=== PATIENT | male | born 1950 | race African-American/Black ===

== ENCOUNTER 2016-08-26 12:30 | Inpatient (IN) ==
--- NOTE | 2016-08-25 21:51 | Discharge Summary ---
<Lisa Canales Maryellen - Last Filed: 08/25/16 21:53> Date of Encounter: 08/25/16 - Discharge Diagnosis (1) Hip arthritis Priority: Primary Status: Acute (2) Dyslipidemia Priority: Secondary Status: Chronic (3) Hypertension Priority: Secondary Status: Chronic Qualifiers: Hypertension type: essential hypertension Qualified Code(s): I10 - Essential (primary) hypertension (4) Obesity Priority: Secondary Status: Chronic Qualifiers: Obesity type: unspecified obesity type Obesity severity: unspecified obesity severity Qualified Code(s): E66.9 - Obesity, unspecified - Discharge Medications Prescriptions: Doxycycline 100 mg PO BID #14 capsule Home Medications: Ascorbic Acid [Vitamin C] 1,000 mg PO DAILY 06/27/16 [History] Cyanocobalamin (Vitamin B-12) [Vitamin B-12] 100 mcg PO DAILY 06/27/16 [History] Lecithin 1,200 mg PO DAILY 06/27/16 [History] Lysine [l-Lysine] 500 mg PO DAILY 06/27/16 [History] [place]-3S/Dha/Epa/Fish Oil [Fish Oil [place]-3 Softgel] 1,000 mg PO BID 06/27/16 [ History] Pyridoxine HCl [Vitamin B-6] 250 mg PO DAILY 06/27/16 [History] Vitamin E (Dl,Tocopheryl Acet) [Vitamin E] 400 unit PO DAILY 06/27/16 [History] Vitamins A and D [Vitamin A and D] 10,000 units PO DAILY 06/27/16 [History] Aspirin Enteric Coated [Aspirin EC] 325 mg PO Q12H #21 tablet. 08/25/16 [Rx] OxyCODONE Immed Rel [Roxicodone 5 MG] 5 - 10 mg PO Q6HR PRN #40 tablet 08/25/16 [Rx] Dolomite 4 tab PO DAILY 08/26/16 [History] Zinc Acetate [Galzin] 50 mg PO DAILY 08/26/16 [History] Doxycycline 100 mg PO BID #14 capsule 08/28/16 [Rx] Allergies/Adverse Reactions: Allergies No Known Allergies Allergy (Verified 08/26/16 13:20) Primary care physician: Edilberto Duarte MD - Patient Status Disposition: Home, Self-Care Condition: Good - Discharge Instructions Follow Up With: Kash Ruiz MD [Partnered Physician] - 03/07/17 7:25 am Lisa Canales PAC [Physician Nurse Receptionist] - 09/03/16 11:15 am Edilberto Duarte MD [Primary Care Provider] - 01/28/17 9:00 am Additional Instructions: Discharge Instructions: Total Hip Replacement Please call [facility] ([phone]), your Primary Care Physician, or report to the Emergency Room if you have any of the following symptoms: Nausea, vomiting, fever greater that 101.5, swelling, chest pain, shortness of breath, increased pain/redness/drainage/odor for your incision site, numbness/ tingling, or any other concerning symptoms. ACTIVITY:Weight-bearing as tolerated for 8 weeks with hip dislocation precautions that physical therapy taught you. You may progress as tolerated under the guidance of your physical therapist. You do not need to sleep with a pillow between your legs. You can also seep on the operative side or on your stomach. MEDICATIONS: Upon discharge resume your home medications. Take all the medications as prescribed. Take a stool softener if taking narcotic pain medications. Stool softeners are only effective if you drink enough fluids. Drink 6-8 glass of water or fluids a day, unless this is not allowed for another health problem. Despite using stool softeners, if you haven't had a bowel movement in 3 days, please switch to a gentle laxative. Gentle laxatives are sold over the counter. You should have a bowel movement within 24 hours, if not call the office. You will be discharged from the hospital with a prescription for pain medication. You are encouraged to decrease the use of narcotic pain medication as tolerated. Should you require a refill, please call the office. [facility] prescribes narcotic pain medication for only 4-6 weeks after surgery. If you require pain medication beyond this time period, you may be referred to your Primary Care Physician or to the Pain Clinic for further evaluation. Plan ahead for refills on pain medication as many narcotics either need to be picked up at the office or mailed. It is best to call 48-72 hours in advance of needing a prescription refill so you don't run out of medication. To help control the post-operative pain, you may take NSAIDs (Aleve,Advil, Motrin, ibuprofen, naprosyn) or Tylenol as prescribed on the bottle in addition to the pain medication. ANTICOAGULATION (blood thinners): Continue your Aspirin, Lovenox or Coumadin as prescribed to help prevent a blood clot in the leg or in the lungs. As long as your incision remains dry and you tolerate the NSAIDs (Aleve, Advil, Motrin, ibuprofen, naprosyn), it is OK to use the NSAIDS while you are taking your anticoagulation medication. Should your incision start to drain, stop the NSAID and contact our office. Common symptoms of blood clot in the legs include: localized pain, swelling, calf tenderness, redness or discoloration of the skin. Blood clot in the lung symptoms include: shortness of breath, rapid pulse, sweating, and chest pain that worsens with deep breathing, coughing up blood, lightheadedness, feelings of anxiety. If you experience any of these symptoms notify your physician immediately, go to the emergency room, or if having trouble breathing, call 911. WOUND CARE: Leave the dressing on until the followup appointment. Keep the dressing clean and dry. If you have more than half of the dressing become saturated with drainage, please contact the office at [phone]. FOLLOW-UP: Please follow up with your surgeon in the orthopedic clinic in 6 weeks from the day of surgery. If you have bill that need to be removed, you will need to come back to the office in 10-14 days from the day of surgery. - Hospital Course Hospital course: Mr. Silverio is a 65 year old male - Time Spent with Patient Total time spent providing and/or coordinating discharge services: <Kash Ruiz - Last Filed: 08/28/16 13:30> Date of Encounter: 08/28/16 Time of Encounter: 13:28 - Discharge Diagnosis (1) Hip arthritis Priority: Primary Status: Acute (2) Obesity Priority: Secondary Status: Chronic Qualifiers: Obesity type: unspecified obesity type Obesity severity: unspecified obesity severity Qualified Code(s): E66.9 - Obesity, unspecified (3) Dyslipidemia Priority: Secondary Status: Chronic (4) Hypertension Priority: Secondary Status: Chronic Qualifiers: Hypertension type: essential hypertension Qualified Code(s): I10 - Essential (primary) hypertension (5) Obesity (BMI 35.0-39.9 without comorbidity) Priority: Secondary Status: Chronic Primary care physician: Edilberto Duarte MD - Patient Status Functional capacity at discharge: uses cane/walker Overall status at discharge: patient is progressing back to baseline - Hospital Course Hospital course: Mr. Silverio is a 65 year old male The patient had an uneventful postoperative course. They received antibiotics and physical therapy and were discharged in stable condition. There will follow -up in the office in 2 weeks. Patient with negative Doppler secondary to bilateral lower extremity swelling, irritation from the bandage placed on doxycycline 100 mg twice a day follow-up in the office 2 weeks - Time Spent with Patient Total time spent providing and/or coordinating discharge services:
[2016-08-26] MEDS ORDERED: CeFAZolin Pre 2,000 MG/100 ML 2,000 MG/100 ML BAG IVPB ONE (13:05)
--- NOTE | 2016-08-26 13:07 | History & Physical Report ---
Date of Encounter: 08/26/16 Time of Encounter: 13:06 24 Hour HP Update - Instructions Instructions: If the History and Physical is less than 30 days old and was completed prior to A.M. admission and or procedure and has NOT been updated on calendar day of procedure please complete this update prior to performing procedure. - Update Patient reports changes in Medical Condition: No Changes in assessment/condition: No Changes in Medication: No Preop tests/diagnostics Reviewed: Yes Surgery Remains Indicated: Yes Consent for Planned Operative Procedure(s) Verified: Yes - Pre-Operative Checklist Preoperative Checklist Indicated: No Prophylactic Antibiotic Ordered: Yes Is VTE Prophylaxis Indicated?: Yes
[2016-08-26] MEDS ORDERED: Ringers Solution, Lactated 1,000 ML IVC SCH ×2 (13:15→17:07)
[2016-08-26] MEDS ORDERED: *HR* Promethazine 25 MG/ML VIAL IVP PRN (13:33)
[2016-08-26] MEDS ORDERED: *HR* FentaNYL (PF) 100 MCG/2 ML VIAL ONE (13:40)
[2016-08-26] MEDS ORDERED: *HR* Propofol 200 MG/20 ML VIAL IVP ONE (13:41)
[2016-08-26] MEDS ORDERED: Lidocaine -MPF 2% 2 ML VIAL ONE (13:42)
[2016-08-26] MEDS ORDERED: Acetaminophen IV 1,000 MG/100 ML INFUS..BTL IVPB ONE (14:09)
[2016-08-26] MEDS ORDERED: Famotidine 20 MG/2 ML VIAL IVP ONE (14:09)
--- NOTE | 2016-08-26 14:12 | Anesthesia Evaluation PreOp ---
Date of Encounter: 08/26/16 Time of Encounter: 14:10 - Past History Planned Operation: Rt THR Cardiac History: Denies any Significant Hx Pulmonary History: Denies Any Significant HX BRANCH RETAIL EXECUTIVE History: Denies Any Significant HX Other Medical History: Other (OA) Anesthesia History: No Prior Anesthetic Complications Alcohol Use: none, occasionally Drug use: none Medications and Allergies Ascorbic Acid [Vitamin C] 1,000 mg PO DAILY 06/27/16 [History] Cyanocobalamin (Vitamin B-12) [Vitamin B-12] 100 mcg PO DAILY 06/27/16 [History] Lecithin 1,200 mg PO DAILY 06/27/16 [History] Lysine [l-Lysine] 500 mg PO DAILY 06/27/16 [History] [place]-3S/Dha/Epa/Fish Oil [Fish Oil [place]-3 Softgel] 1,000 mg PO BID 06/27/16 [ History] Pyridoxine HCl [Vitamin B-6] 250 mg PO DAILY 06/27/16 [History] Vitamin E (Dl,Tocopheryl Acet) [Vitamin E] 400 unit PO DAILY 06/27/16 [History] Vitamins A and D [Vitamin A and D] 10,000 units PO DAILY 06/27/16 [History] Aspirin Enteric Coated [Aspirin EC] 325 mg PO Q12H #21 tablet. 08/25/16 [Rx] OxyCODONE Immed Rel [Roxicodone 5 MG] 5 - 10 mg PO Q6HR PRN #40 tablet 08/25/16 [Rx] Dolomite 4 tab PO DAILY 08/26/16 [History] Zinc Acetate [Galzin] 50 mg PO DAILY 08/26/16 [History] Allergies No Known Allergies Allergy (Verified 08/26/16 13:20) - Meds/Allergy Pre-op Review Medications Reviewed: Yes Allergies Reviewed: Yes Beta Blockers on Current Med List: No Anesthesia Results - Labs Laboratory Tests 08/12/16 08/12/16 09:55 09:55 Hgb 12.3 L Hct 38.5 Plt Count 190 Sodium 138 Potassium 4.0 BUN 16 Creatinine 0.79 - Imaging EKG: report reviewed (ST) Anesthesia Exam O2 Sat Height 1.73 m Height 1.73 m Height 1.73 m Weight 117.027 kg Weight 117.027 kg Weight 117.027 kg O2 Sat by Pulse Oximetry 97 O2 Sat by Pulse Oximetry 97 O2 Sat by Pulse Oximetry 97 Vital Signs Temp Pulse Resp BP Pulse Ox 98.9 F 98 18 178/107 97 08/26/16 12:53 08/26/16 12:53 08/26/16 12:53 08/26/16 12:53 08/26/16 12:53 Height: 5'9 Weight: 255 lbs NPO (# of Hours): MN Pain Scale: 0 - HEENT Pupil (Motor): Pupils equal, EOMI Mallampati: II Teeth: Normal Oral Opening: Greater than 3 - BRANCH RETAIL EXECUTIVE LOC: Oriented BRANCH RETAIL EXECUTIVE Motor: Normal RUE, Normal LUE, Normal RLE, Normal LLE, Normal Face BRANCH RETAIL EXECUTIVE Sensory: Normal: RUE, LUE, RLE, LLE, Face - Cardiac Rhythm: Regular Murmur: None JVD: No Carotid Bruit: No - Pulmonary Breath Sounds: bilateral Clear Respiratory Effort: Symmetrical Anesthesia Assess/Plan ASA Score: 2 Modified Niru Scale for Level of Consciousness: Cooperative, oriented, and tranquil Anesthetic Plan: General Monitoring Plan: Standard Monitors Recovery Plan: PACU (Discussed GA, agrees to proceed)
[2016-08-26] MEDS ORDERED: Ondansetron 4 MG/2 ML VIAL ONE (14:52)
[2016-08-26] MEDS ORDERED: Dexamethasone 4 MG/ML VIAL ONE (14:52)
[2016-08-26] MEDS ORDERED: EPHEDrine 50 MG/ML VIAL ONE (15:03)
[2016-08-26] MEDS ORDERED: *HR* HYDROmorphone 2 MG/ML SYRINGE ONE (15:04)
--- NOTE | 2016-08-26 15:29 | Orthopedic Operative Note ---
Date of procedure: 08/26/16 Pre-op diagnosis: Right hip arthritis Post-op diagnosis: same Procedure: Procedure: Right Total Hip Replacment Estimated blood loss: 200 cc Hardware: Biomet DM Cup: 64 G7 fin cup Femoral size 12 echo full profile lateralized stem Head: +6 head with Hanane Procedural Notes: Significant grade 4 arthritic changes femoral head acetabular socket Operative procedure: The patient was brought to the operating room and placed on the operating room table. After general anesthesia was administered the patient was placed in the lateral decubitus position with the operative leg up. All pressure points were padded appropriately and the head was stabilized in the neutral position. The operative extremity was prepped and draped in the sterile surgical fashion patient received IV antibiotic prior to skin incision. A standard posterior approach is made to the operative hip, the incision was made through the skin and subcutaneous tissue hemostasis was obtained with Bovie cautery. Using careful sharp dissection the fascia was identified and incised exposing the external rotators. The external rotators were released off the greater trochanter and tagged with #2 FiberWire suture. The capsule was T'd open and the hip was brought into internal rotation. Patient noted to have grade 4 arthritic changes femoral head. The femoral neck cut was made at the appropriate level. An anterior capsulotomy was performed for the anterior retractor. Soft tissues removed from the acetabulum. Patient noted to have grade 4 arthritic changes acetabulum. Acetabulum was first reamed medially, and then reamed in 15 degrees of anteversion and 45 degrees off the horizontal. It was reamed up to the appropriate size 64 The appropriate-sized 64 acetabular cup was impacted in place in 15 degrees of anteversion and 45 degrees off the horizontal. This had good fit and fixation. The hip was brought back in to internal rotation and prepared with the coin box inspector followed by the canal finder followed by broaching process in 20 degrees anteversion. It was broached up to the appropriate size 12 The femoral implant was impacted in place in 20 degrees of anteversion. Trial reduction found the hip to be stable with a +6 head and Hanane. The trials were removed and the real implants were impacted in place. The hip was reduced, patient had apparent equal leg lengths. The hip had excellent stability with forward flexion to 90 degrees adduction of 30 degrees and internal rotation of 60 degrees. The hip had no shuck. The hips after 2 minutes with a Betadine saline solution. It was irrigated out with 2 L of pulse irrigation. The external rotators were reattached to drill holes in the greater trochanter. Fascia was closed with a running #2 PDS suture. The deep tissue was irrigated and closed deep with #1 PDS suture superficially with 0 PDS suture and skin was closed with Dermabond and skin bill. The patient was placed in a sterile dressing and abduction pillow. The patient was extubated and transferred to the recovery room in stable condition. Anesthesia: DALLIN Surgeon: Kash Ruiz Etl Informatica Developer: Lisa Canales Condition: stable Disposition: PACU
[2016-08-26] MEDS: *HR* HYDROmorphone (PF) 1 MG/ML SYRINGE IVP PRN ×2 (16:00→16:15)
[2016-08-26] MEDS ORDERED: *HR* HYDROmorphone (PF) 1 MG/ML SYRINGE ONE (16:02)
[2016-08-26 16:13] LABS: Hematocrit 37.7 % (37.5-50.1); Hemoglobin 12.2 g/dL (12.9-16.9)
--- NOTE | 2016-08-26 16:30 | Anesthesia Evaluation Post Op ---
Date of Encounter: 08/26/16 Time of Encounter: 16:29 - Vital Signs Vital Signs: Vital Signs/O2 Sat/Glucose, Most Recent Temp Pulse Resp BP Pulse Ox 98.0 F 89 16 161/89 98 08/26/16 15:55 08/26/16 16:15 08/26/16 16:15 08/26/16 16:15 08/26/16 16:15 - Lungs Lungs: Clear Ascult./Percussion - Airway Airway: Non-obstructed - Cardiovascular Regular Rate - Mental Status Mental Status: Alert & Oriented, Answers Appropriately - Pain Pain Scale: 0 Pain Scale used: Numeric (1 - 10) - Nausea Vomiting Nausea Vomiting: Not Present - Hydration Hydration: NPO - Discharge PostOp Status: Transfer Patient to floor
[2016-08-26] MEDS ORDERED: ceFAZolin 2,000 MG in D5% in Water 100 ML IVPB SCH (17:07)
[2016-08-26] MEDS ORDERED: Naloxone 0.4 MG/ML INJ IVP PRN (17:07)
[2016-08-26] MEDS ORDERED: Temazepam 15 MG CAPSULE PO PRN (17:07)
[2016-08-26] MEDS ORDERED: *HR* HYDROmorphone (PF) 1 MG/ML SYRINGE IVP PRN (17:07)
[2016-08-26] MEDS ORDERED: Ondansetron 4 MG/2 ML VIAL IVP PRN (17:07)
[2016-08-26] MEDS ORDERED: MOM Conc 10 ML UD.LIQ PO PRN (17:07)
[2016-08-26] MEDS ORDERED: Ascorbic Acid 500 MG TABLET PO SCH (17:07)
[2016-08-26] MEDS ORDERED: Acetaminophen 325 MG TABLET PO PRN (17:07)
[2016-08-26] MEDS ORDERED: Sennosides 8.6 MG TABLET PO PRN (17:07)
[2016-08-26] MEDS ORDERED: *HR* Enoxaparin 30 MG/0.3 ML SYRINGE SQ SCH (18:00)
[2016-08-26] MEDS: *HR* OxyCODONE Immed Rel 5 MG TABLET PO PRN ×2 (18:48→23:09)
[2016-08-26] MEDS: *HR* Enoxaparin 30 MG/0.3 ML SYRINGE SQ SCH (18:49)
[2016-08-26] MEDS: ceFAZolin 2,000 MG in D5% in Water 100 ML IVPB SCH (23:05)
[2016-08-26] MEDS: EPA PO SCH (23:05)
[2016-08-26] MEDS: OMEGA PO SCH (23:05)
[2016-08-26] MEDS: FISH OIL PO SCH (23:05)
[2016-08-26] MEDS: DHA PO SCH (23:05)
[2016-08-27] MEDS: *HR* OxyCODONE Immed Rel 5 MG TABLET PO PRN ×4 (04:05→20:14)
[2016-08-27 05:01] LABS: Hematocrit 34.2 % (37.5-50.1)
[2016-08-27 05:16] LABS: BUN/Creatinine Ratio 17 (6-26); Blood Urea Nitrogen 13 mg/dL (8-26); Calcium 8.6 mg/dL (8.6-10.8); Carbon Dioxide 23 mEq/L (19-29); Chloride 103 mEq/L (98-109); Glucose 150 mg/dL (70-99); Osmolality,Calculated 283 (280-300); Potassium 4.4 mEq/L (3.5-4.5); Sodium 135 mEq/L (136-145); eGFR For African Americans > 60 (> 60); eGFR For Non-African Americans > 60 (> 60)
[2016-08-27] MEDS: *HR* Enoxaparin 30 MG/0.3 ML SYRINGE SQ SCH ×2 (05:57→17:23)
[2016-08-27] MEDS: ceFAZolin 2,000 MG in D5% in Water 100 ML IVPB SCH (06:01)
--- NOTE | 2016-08-27 07:44 | Orthopedics Progress Note ---
Date of Encounter: 08/27/16 Time of Encounter: 07:43 - Assessment and Plan (1) Hip arthritis Current Visit: Yes Status: Acute (2) Obesity Current Visit: Yes Status: Chronic Qualifiers: Obesity type: unspecified obesity type Obesity severity: unspecified obesity severity Qualified Code(s): E66.9 - Obesity, unspecified (3) Dyslipidemia Current Visit: No Status: Chronic (4) Hypertension Current Visit: No Status: Chronic Qualifiers: Hypertension type: essential hypertension Qualified Code(s): I10 - Essential (primary) hypertension (5) Obesity (BMI 35.0-39.9 without comorbidity) Current Visit: No Status: Chronic Subjective Interval history: Patient was seen this morning doing well without complaints. Afebrile vital signs stable. Operative extremity: Neurovascularly intact Dressing clean dry and intact Calves nontender Assessment and plan: Continue with postoperative care Hematocrit 34 Objective Vital signs: Vital Signs Temp Pulse Resp BP Pulse Ox 08/27/16 06:40 98.6 F 93 16 124/71 96 08/27/16 05:20 98.0 F 104 17 137/78 93 L 08/27/16 01:21 98.3 F 107 16 177/94 96 08/26/16 21:35 97.7 F 97 16 123/80 97 08/26/16 19:05 97.9 F 97 18 155/89 96 08/26/16 18:38 97.1 F L 101 16 143/98 96 08/26/16 17:07 97.2 F L 90 15 166/93 97 08/26/16 16:35 97.9 F 89 16 140/84 97 08/26/16 16:25 97.8 F 90 16 159/89 98 08/26/16 16:15 89 16 161/89 98 08/26/16 16:05 86 16 153/91 96 08/26/16 15:55 98.0 F 96 16 155/92 92 L 08/26/16 13:04 98.9 F 98 18 178/107 97 08/26/16 12:59 98.9 F 98 18 178/107 97 08/26/16 12:53 98.9 F 98 18 178/107 97 Intake and Output 08/26/16 08/26/16 08/27/16 15:59 23:59 07:59 Intake Total 100 / 100 100 / 100 Output Total 200 / 200 1300 / 1300 Balance -200 / -200 100 / 100 -1200 / -1200 Intake: IV Fluids 100 / 100 100 / 100 Ancef 2,000 MG In 100 / 100 100 / 100 Dextrose 5% 100 ML @ 200 mls/hr IVPB Q8H [facility] Rx#: [id number] Output: Urine 1300 / 1300 Estimated Blood Loss 200 / 200 Other: Weight 117.027 kg - Labs CBC & BMP: 08/27/16 04:37 08/27/16 04:37 Labs: Abnormal lab results Hgb 11.0 g/dL (12.9-16.9) L 08/27/16 04:37 Hct 34.2 % (37.5-50.1) L 08/27/16 04:37 Sodium 135 mEq/L (136-145) L 08/27/16 04:37 Glucose 150 mg/dL (70-99) H 08/27/16 04:37 - VTE Documentation of Mechanical Device: Venous foot pump, device Consult Discharge Plan - Plan Referrals: Kash Ruiz MD [Partnered Physician] - 09/22/16 7:25 am Lisa Canales PAC [Physician [place] Machine Operator Helper] - 09/03/16 11:15 am Edilberto Duarte MD [Primary Care Provider] - 01/28/17 9:00 am
[2016-08-27] MEDS: Multivit/Ca/Min/Fe/FA 1 TAB TABLET PO SCH (10:05)
[2016-08-27] MEDS: Pyridoxine (B-6) 50 MG TABLET PO SCH (10:05)
[2016-08-27] MEDS: Ascorbic Acid 500 MG TABLET PO SCH (10:05)
[2016-08-27] MEDS: LECITHIN 1200 MG PO SCH (10:06)
[2016-08-27] MEDS: (Cyanocobalamin (Vitamin B-12) [Vitamin B-12] 100 MCG PO SCH (10:06)
[2016-08-27] MEDS: (Lysine [L-Lysine] 500 MG) PO SCH (10:07)
[2016-08-27] MEDS: OMEGA PO SCH ×2 (10:07→20:15)
[2016-08-27] MEDS: EPA PO SCH ×2 (10:07→20:15)
[2016-08-27] MEDS: (Zinc Acetate [Galzin] 50 MG) PO SCH (10:07)
[2016-08-27] MEDS: DHA PO SCH ×2 (10:07→20:15)
[2016-08-27] MEDS: VITAMINS A AND D PO SCH (10:07)
[2016-08-27] MEDS: FISH OIL PO SCH ×2 (10:07→20:15)
[2016-08-28] MEDS: *HR* OxyCODONE Immed Rel 5 MG TABLET PO PRN ×2 (00:18→08:04)
[2016-08-28 05:00] LABS: Hematocrit 30.4 % (37.5-50.1); Hemoglobin 9.9 g/dL (12.9-16.9)
[2016-08-28 05:11] LABS: BUN/Creatinine Ratio 21 (6-26); Blood Urea Nitrogen 15 mg/dL (8-26); Calcium 8.4 mg/dL (8.6-10.8); Carbon Dioxide 25 mEq/L (19-29); Chloride 102 mEq/L (98-109); Glucose 125 mg/dL (70-99); Osmolality,Calculated 282 (280-300); Potassium 4.3 mEq/L (3.5-4.5); Sodium 135 mEq/L (136-145); eGFR For African Americans > 60 (> 60); eGFR For Non-African Americans > 60 (> 60)
--- NOTE | 2016-08-28 06:36 | Orthopedics Progress Note ---
Date of Encounter: 08/28/16 Time of Encounter: 06:35 - Assessment and Plan (1) Hip arthritis Current Visit: Yes Status: Acute (2) Obesity Current Visit: Yes Status: Chronic Qualifiers: Obesity type: unspecified obesity type Obesity severity: unspecified obesity severity Qualified Code(s): E66.9 - Obesity, unspecified (3) Dyslipidemia Current Visit: No Status: Chronic (4) Hypertension Current Visit: No Status: Chronic Qualifiers: Hypertension type: essential hypertension Qualified Code(s): I10 - Essential (primary) hypertension (5) Obesity (BMI 35.0-39.9 without comorbidity) Current Visit: No Status: Chronic Subjective Interval history: Patient was seen this morning doing well without complaints. Afebrile vital signs stable. Operative extremity: Neurovascularly intact Dressing clean dry and intact Calves tender bilateral and swelling Assessment and plan: Continue with postoperative care Obtain bilateral Dopplers plan for discharge today hct 30 Objective Vital signs: Vital Signs Temp Pulse Resp BP Pulse Ox 08/28/16 04:00 98.4 F 110 17 127/70 96 08/28/16 01:02 99.6 F 111 16 149/73 96 08/27/16 22:00 96 08/27/16 20:56 98.8 F 112 16 145/72 96 08/27/16 14:59 98.4 F 102 14 153/78 95 08/27/16 12:31 96 08/27/16 11:12 98.5 F 96 16 143/83 98 08/27/16 06:40 98.6 F 93 16 124/71 96 Intake and Output 08/27/16 08/27/16 08/28/16 15:59 23:59 07:59 Intake Total 2100 / 2100 400 / 400 Output Total 1525 / 1525 550 / 550 Balance 575 / 575 -150 / -150 Intake: IV Fluids 900 / 900 Lactated Ringers 1,000 ML 900 / 900 @ 75 mls/hr IVC .[id number] [facility] Rx#:[id number] Oral 1200 / 1200 400 / 400 Output: Urine 1525 / 1525 550 / 550 Other: Meal Lunch Percent of Meal Consumed 100% - Labs CBC & BMP: 08/28/16 04:37 08/28/16 04:37 Labs: Abnormal lab results Hgb 9.9 g/dL (12.9-16.9) L 08/28/16 04:37 Hct 30.4 % (37.5-50.1) L 08/28/16 04:37 Sodium 135 mEq/L (136-145) L 08/28/16 04:37 Glucose 125 mg/dL (70-99) H 08/28/16 04:37 Calcium 8.4 mg/dL (8.6-10.8) L 08/28/16 04:37 - VTE Documentation of Mechanical Device: Venous foot pump, device Consult Discharge Plan - Plan Referrals: Kash Ruiz MD [Partnered Physician] - 09/22/16 7:25 am Lisa Canales, MAYTE [Physician Process Improvement Engineer] - 09/03/16 11:15 am Edilberto Duarte MD [Primary Care Provider] - 01/28/17 9:00 am
[2016-08-28 06:48] VITALS: BP 131/69
[2016-08-28] MEDS: Ascorbic Acid 500 MG TABLET PO SCH (08:03)
[2016-08-28] MEDS: Multivit/Ca/Min/Fe/FA 1 TAB TABLET PO SCH (08:03)
[2016-08-28] MEDS: Pyridoxine (B-6) 50 MG TABLET PO SCH (08:03)
[2016-08-28] MEDS: *HR* Enoxaparin 30 MG/0.3 ML SYRINGE SQ SCH (08:05)
[2016-08-28] MEDS: (Cyanocobalamin (Vitamin B-12) [Vitamin B-12] 100 MCG PO SCH (12:03)
[2016-08-28] MEDS: LECITHIN 1200 MG PO SCH (12:03)
[2016-08-28] MEDS: DHA PO SCH (12:04)
[2016-08-28] MEDS: FISH OIL PO SCH (12:04)
[2016-08-28] MEDS: (Lysine [L-Lysine] 500 MG) PO SCH (12:04)
[2016-08-28] MEDS: (Zinc Acetate [Galzin] 50 MG) PO SCH (12:04)
[2016-08-28] MEDS: VITAMINS A AND D PO SCH (12:04)
[2016-08-28] MEDS: OMEGA PO SCH (12:04)
[2016-08-28] MEDS: EPA PO SCH (12:04)
--- NOTE | 2016-08-28 18:40 | Venous Imaging Report ---
LE Venous Duplex Patient Name:Pasha Silverio Order Number:[id number] Procedure Date:08/28/2016 Date:1950ge:65 yrs Gender:Male Location:[facility] Room #: 3NE22 Manager Night:Cesario Crawley RN Referring MD:Kash Ruiz MD utility operator yarn:Edilberto Duarte MD Reading MD:Luan Ramsey MD , FACS Primary Indications:Swelling of limb Secondary Indications: Risk Factors Yes/No Smoking Current No Anticoagulants Yes Previous Vascular Surgery No Hx of DVT No Hx of Chemotherapy No Trauma to Veins No Recent Surgery Yes Hx of Superficial Phlebitis No [place] Girt Filter No Impressions: Bilateral lower extremity: normal superficial and deep exam. Recommendations: Test completed on 08/28/2016 at 11:15:00 am. Findings Venous Duplex Results: Right: Venous imaging of the lower extremity reveals full patency and normal vessel compressibility of the right distal iliac, right common femoral, right superficial femoral, right popliteal, right posterior tibial, right peroneal, right great saphenous and right lesser saphenous. Doppler signals in the evaluated veins were normal. Left: Venous imaging of the lower extremity reveals full patency and normal vessel compressibility of the left distal iliac, left common femoral, left superficial femoral, left popliteal, left posterior tibial, left peroneal, left great saphenous and left lesser saphenous. Doppler signals in the evaluated veins were normal. Prior Study: No prior study available for comparison. Lower Extremity Venous Duplex Side Vein Compress Spontaneous Flow Augment Diameter (cm) Depth (cm) Right Distal Iliac Normal Yes Phasic Yes Right Common Femoral Normal Yes Phasic Yes Right Superficial Femoral Normal Yes Phasic Yes Right Popliteal Normal Yes Phasic Yes Right Posterior Tibial Normal Yes Phasic Yes Right Peroneal Normal Yes Phasic Yes Right Great Saphenous Normal Yes Phasic Yes Right Lesser Saphenous Normal Yes Phasic Yes Left Distal Iliac Normal Yes Phasic Yes Left Common Femoral Normal Yes Phasic Yes Left Superficial Femoral Normal Yes Phasic Yes Left Popliteal Normal Yes Phasic Yes Left Posterior Tibial Normal Yes Phasic Yes Left Peroneal Normal Yes Phasic Yes Left Great Saphenous Normal Yes Phasic Yes Left Lesser Saphenous Normal Yes Phasic Yes Updated by Luan Ramsey MD, FACS on 08/28/2016 6:33:12 PM Luan Ramsey MD electronically signed on 08/28/2016 6:33:46 PM with status of Final
== END 2016-08-28 14:58 | disposition home or self-care (01) | DRG 470 ==
LOC: SAMDAY 12:30 → 3NENU 16:55
PROVIDERS: ADMIT Orthopaedic Surgery; ATTEND Orthopaedic Surgery